=== PATIENT | female | born 1960 ===

== ENCOUNTER 2018-07-03 08:12 | Outpatient (CLI) | payer SELFPAY | END 2018-07-03 08:13 | disposition home or self-care (01) | LOC: C.MRIC 08:12 ==

== ENCOUNTER 2018-07-11 08:42 | Outpatient (CLI) | payer SELFPAY | END 2018-07-11 08:43 | disposition home or self-care (01) | LOC: C.EEG 08:42 | DX: R41.3 Other amnesia (principal) ==